=== PATIENT | male | born 1965 | race Caucasian/White ===

== ENCOUNTER 2024-02-06 14:45 | Outpatient (CLI) | payer OTHER, SELFPAY ==
--- NOTE | 2024-02-06 10:45 | DI.RAD_ITS ---
Exam(s) XR KNEE LT 3V AP,LAT,CLAY EXAM: XR KNEE LT 3V AP,LAT,CLAY CLINICAL HISTORY: left knee pain. TECHNIQUE: 2D digital imaging was performed. Three views. COMPARISON: No exams were available for comparison FINDINGS: BONES: No acute fracture is present. No bony destructive lesion is seen. Minimal enthesophyte at t he upper of patella JOINTS: Joint spaces are maintained. The knee is normally aligned. No joint effusion is seen. SOFT TISSUE: Normal. IMPRESSION: No acute abnormality. DATA REPOSITORY: RADIATION DOSE DELIVERED:
== END 2024-02-06 14:46 | disposition home or self-care (01) ==
LOC: DIORS 14:46
PROVIDERS: Visit Provider Physician Assistant
DX: M25.562 Pain in left knee (principal)
CPT/HCPCS: 73562

== ENCOUNTER → 2024-02-21 02:05 | Outpatient (CLI) | payer OTHER, SELFPAY ==
--- NOTE | 2024-02-21 07:30 | DI.MRI_ITS ---
Exam(s) MR LOWER JOINT LT WO EXAM: MR LOWER JOINT LT WO CLINICAL HISTORY: PAIN,INTERNAL DERANGEMENT LT KNEE, M23.92 TECHNIQUE: Multiplanar multisequence MRI of the knee was performed. COMPARISON: CR XR KNEE LT 3V AP,LAT,CLAY from 02/06/2024 FINDINGS: EFFUSION: There is a small knee joint effusion. No Piedra cyst. There is some subcutaneous edema ove r the anterior and both sides of the knee. There is signal abnormality with in the vastus medialis muscle extending above the field of view of t his study consistent with an element of muscular strain-tearing. Signal abnormality at this level ex tends inferiorly over the medial patellar retinaculum. MARROW:There is prominent signal abnormality throughout a large part of the lateral femoral condyle b oth subarticular and extending up into the lower metaphysis. Subchondral signal abnormality noted triana spicious for developing osteochondral defects at this level. A similar focal finding is seen at the main weight-bearing surface of medial femoral condyle. There is no abnormal intraosseous signal eith er side of the tibial plateau nor in the fibular head and neck. PATELLOFEMORAL COMPARTMENT: Quadriceps and patellar tendons are intact. There is no significant thinning of the retropatellar cartilage. No evidence of fissure nor signific ant chondral defect. No osteochondral defect at this level.There is no intraosseous signal to sugges t recent patellar dislocation. There are no patellar retinacular tears. CRUCIATE LIGAMENTS: Some increased signal but no high-grade full-thickness tear.The posterior cruciat e ligament is intact. MEDIAL COMPARTMENT/MEDIAL MENISCUS: Some myxoid degeneration signal in the posterior horn of the medi al meniscus but no true tear of this structure. There is also no tear of the anterior horn of the me dial meniscus.No meniscal extrusion.. There is significant articular cartilagethinning over the outer aspect of the weight-bearing surface of the medial femoral condyle. There is also a focus of signal abnormality which is suspicious for d eveloping osteochondral defect at the articular surface measuring 8 mm wide by 11 mm AP by 4 mm deep. This does not appear unstable at this time. MEDIAL COLLATERAL LIGAMENT: There is significant signal abnormality in the soft tissues over the medi al aspect of the knee, including around the medial collateral ligament but the main component of the medial collateral ligament appears intact. There is no meniscocapsular separation. LATERAL COMPARTMENT/LATERAL MENISCUS: There is no evidence of lateral meniscal tear.However, there is thinning of the articular cartilage over the main weight-bearing surface of the lateral femoral cond yle and, as described above, there is prominent bone contusion signal throughout most of the subartic ular aspect of the lateral condyle and extending up into the distal metaphysis. There is a focus of subarticular signal abnormality also at risk for OCD here. ILIOTIBIAL BAND: Intact LATERAL COLLATERAL LIGAMENT COMPLEX: The fibular collateral ligament is intact. The biceps femoris t endon is intact.Popliteus muscle and tendon are intact. IMPRESSION: 1. There is a larger bone contusion signal involving a large part of the main weight-bearing surface of the lateral femoral condyle. Thinning of the articular cartilage surface at this level. Also a s mall focal area of subarticular signal abnormality in the main weight-bearing surface of the medial f emoral condyle having the appearance of a a focal area of developing osteochondral defect, not unstab le appearing at this time. No evidence of bone contusion in the tibial plateau nor in the fibular he ad and neck. 2. Prominent amount of soft tissue signal abnormality on the medial aspect of the knee involving the vastus medialis muscle and extending down to the medial patellar retinaculum level. Increased signal is seen adjacent to the main aspect of the medial collateral ligament there is no high-grade tear of the MCL. Also no meniscocapsular separation. 3. There are no meniscal tears evident. Some signal abnormality around the ACL but no evidence of hi gh-grade ACL tear. PCL is intact. 4. Lateral collateral ligament complex components are intact. No abnormal intraosseous signal at the fibular head-styloid process attachment site of these components DATA REPOSITORY:
== END ==
PROVIDERS: Visit Provider Student in an Organized Health Care Education/Training Program
DX: M23.92 Unspecified internal derangement of left knee (principal); R22.41 Localized swelling, mass and lump, right lower limb
CPT/HCPCS: 73721

== ENCOUNTER 2024-03-12 16:58 | Emergency (ER) | payer OTHER, SELFPAY ==
[2024-03-12] VITALS (17 sets, daily range): BP systolic 144–187; BP diastolic 82–94; PULSE 71–83; RESP 11–16; TEMP 36.4; O2SAT 98–100
--- NOTE | 2024-03-12 17:00 | RT.EKG_ITS ---
APPROVED REPORT Exam: Resting ECG Reason for Exam: SOB/Palpitations Patient Location: E HR:77 bpm ECG Measurements Heart Rate 77 AXIS ND 202 P 70 QRSd 96 QRS 58 QT 386 T 56 QTc 438 Conclusion Sinus rhythm...normal P axis, V-rate 60- 99 sinus rhythm, normal axis, normal intervals, non ischemic
--- NOTE | 2024-03-12 17:32 | ED.GENADUL_ITS ---
Discharge Plan Disposition Patient Disposition: Home Condition: Improving Discharge Details Chief Complaint: Palpitatns Clinical Impression: Palpitations Primary Care Provider: Unknown,Unknown ED Provider: Yoav Thayer Home Meds and New Rx's Prescriptions: No Action No Known Home Meds Discharge Instructions Instructions: Palpitations Additional Instructions: Please follow-up with cardiology referral. Respiratory therapy team would like to initiate Holter monitor and is available after 7 AM tomorrow morning. Please return to the emergency department for any worsening symptoms HPI General Date/Time Provider Initiated Documentation: 03/12/24 17:14 . HPI Narrative: 59-year-old male presents with 2 days of palpitations and chest pressure nonexertional intermittent in nature self resolving, sensation of presyncope without syncope, history of atrial tachycardia as a child self resolving, no prior history of coronary disease or thromboembolic disease, no recent travel no recent surgery, patient did have left knee steroid injection earlier this month denies leg pain or swelling Related Data Home Medications ?Medication ?Instructions ?Recorded ?Confirmed Unknown [No Known Home Meds] 02/06/24 03/12/24 Allergies Allergy/AdvReac Type Severity Reaction Status Date / Time No Known Allergies Allergy Verified 03/12/24 17:59 General Stated Complaint: Palpitatns KI: 3 Exam Narrative Exam Narrative: Alert oriented interactive Tongue secretions normal voice Normal heart sounds no murmurs rubs or gallops, strong radial pulse warm well- perfused extremities Lungs clear bilaterally, speaking full sentences, no wheezes rales or rhonchi No peripheral edema or pain Course Vital Signs Vital signs: Vital Signs Temperature 36.4 C L 03/12/24 17:03 Pulse 83 03/12/24 17:03 Respiratory Rate 16 03/12/24 17:03 Blood Pressure 144/88 H 03/12/24 17:03 Pulse Oximetry 99 03/12/24 17:03 Temperature 36.4 C L 03/12/24 17:03 Temperature Source Temporal Artery Scan 03/12/24 17:03 Pulse 83 03/12/24 17:03 Respiratory Rate 16 03/12/24 17:03 Respiratory Effort Normal, Non-Labored 03/12/24 17:06 Blood Pressure 144/88 H 03/12/24 17:03 Blood Pressure Position Sitting 03/12/24 17:03 Pulse Oximetry 99 03/12/24 17:03 Oxygen Delivery Method Room Air 03/12/24 17:03 Oxygen Flow Rate 0 03/12/24 17:03 Pain Level 0 03/12/24 17:03 Medical Decision Making 59-year-old male history of atrial tachycardia as a child self resolved, presents with intermittent palpitations and chest pressure associated with presyncope over the last 2 days, resting comfortably no acute distress currently no chest pressure no shortness of breath no current palpitations, hemodynamically stable afebrile nontoxic normotensive, no peripheral edema, no recent travel no recent surgery, patient did have recent left knee steroid injection, no history of thromboembolic disease or coronary disease, EKG normal sinus rhythm nonischemic, consider recurrent PAC versus PVCs versus SVT versus systemic reaction to steroid injection versus must also consider PE versus ACS lower suspicion for pericarditis or myocarditis was also consider electrolyte derangement versus stress/anxiety lower suspicion for aortic pathology or pneumonia or pneumothorax. Will obtain basic labs troponin BNP chest x-ray EKG, TSH coags, close reassessment of symptoms disposition pending results and imaging 19: 39 patient resting comfortably, asymptomatic, labs and imaging unremarkable here. Will arrange cardiology follow-up. Have contacted respiratory team to establish Holter monitor they have instructed patient to return tomorrow morning at 7 AM for evaluation. Quality:SDOH Health Related Social Needs: No Data to Display PFSH All Active Problems (Updated 03/12/24 @ 19:42 by Yoav Thayer MD) Palpitations (Acute) Arthritis of left knee (Acute) Osteochondral defect of condyle of femur (Acute) Social History Smoking/Tobacco Use Status: Never Smoking risk assessment performed?: Yes Alcohol Intake: never Drug use: Never Substance use type: does not use Housing: house
[2024-03-12 17:40] LABS: Abs Immature Grans 0.04 10^3/uL (0.0-0.06); Absolute Basophil Count 0.04 10^3/uL (0.0-0.2); Absolute Eosinophil Count 0.05 10^3/uL (0.0-0.7); Absolute Lymphocyte Count 1.57 10^3/uL (1.2-3.4); Absolute Monocyte Count 0.51 10^3/uL (0.1-0.8); Absolute Neutrophil Count 4.65 10^3/uL (1.2-6.7); Basophils % 0.6 %; Eosinophils % 0.7 %; HCT 44.7 % (40.0-50.0); Immature Grans % 0.6 %; Lymphocytes % 22.9 %; MCH 29.2 pg (27.0-33.0); MCHC 31.3 % (32.0-36.0); MCV 93 fL (80-95); MPV 9.2 fL (8.0-11.0); Monocytes % 7.4 %; Neutrophils % 67.8 %; Platelet Count 241 10^3/uL (130-400); RDW 13.6 % (11.8-14.1); RDW-SD 46.4 fL; WBC 6.86 10^3/uL (4.4-10.8)
[2024-03-12 17:54] LABS: PTT Activated 29.6 sec (23.6-32.8); Prothrombin Time 10.5 sec (9.1-11.1)
[2024-03-12 18:02] LABS: ALT 28 U/L (16-63); AST 13 U/L (15-37); Alkaline Phosphatase 93 U/L (46-116); Anion Gap 7.6 mmol/L (3-11); BUN 18 mg/dL (7-18); Bilirubin, Total 0.97 mg/dL (0.2-1.0); CO2 31.4 mmol/L (21.0-32.0); Calcium 8.9 mg/dL (8.5-10.1); Chloride 102 mmol/L (98-107); Estimated GFR 85.63 (mL/min/1.73m2); Glucose 96 mg/dL (74-106); Magnesium 2.3 mg/dL (1.8-2.4); NT-proBNP 118 pg/mL (<300); Potassium 3.6 mmol/L (3.5-5.1); Sodium 141 mmol/L (136-145); TSH (W/Ref FT4) 2.94 uIU/mL (0.36-3.74); Total Protein 7.8 g/dL (6.4-8.2); Troponin I < 50 ng/L (< or =60)
[2024-03-12 18:10] LABS: D-Dimer 180 ng/mlFEU (<500)
--- NOTE | 2024-03-12 19:10 | DI.RAD_ITS ---
Exam(s) XR CHEST 2V PA LATERAL EXAM: XR CHEST 2V PA LATERAL CLINICAL HISTORY: palpitations, chest pressure. TECHNIQUE: 2D digital imaging was performed. COMPARISON: No exams were available for comparison FINDINGS: 2 views: Heart size is normal. The mediastinum is not widened. Lungs are clear. No infiltrates nor pleural effusions. IMPRESSION: No acute pulmonary findings. DATA REPOSITORY: RADIATION DOSE DELIVERED:
--- NOTE | 2024-03-12 19:34 | DI.VRAD_ITS ---
PROCEDURE INFORMATION: Exam: XR Chest Exam date and time: 03/12/2024 7:00 PM Age: 59 years old Clinical indication: Shortness of breath; Patient HX: Steroid joint injection in knee at ortho clinic 2 weeks ago TECHNIQUE: Imaging protocol: Radiologic exam of the chest. Views: 2 views. COMPARISON: No relevant prior studies available. FINDINGS: Lungs: Normal. Pleural spaces: Unremarkable. No pleural effusion. No pneumothorax. Heart/Mediastinum: Normal. Bones/joints: Multilevel thoracic spine degenerative disc space narrowing and osteophyte formation. IMPRESSION: No acute cardiopulmonary abnormality. Dictated and Authenticated by: Kelvin Richardson MD. Ordering:FOX Cason MD
--- NOTE | 2024-03-12 19:43 | NUR.NOTE ---
Referral to Cardiology for a follow up in one week for palpations. Nursing Note:
== END 2024-03-12 19:40 | disposition home or self-care (01) ==
PROVIDERS: Emergency Provider Emergency Medicine
DX: R00.2 Palpitations (principal); R06.02 Shortness of breath
CPT/HCPCS: 36415; 80053; 93005; 99284; 71046; 83735; 83880; 84443; 84484; 85025; 85379; 85610; 85730; 93010; 99283

== ENCOUNTER 2024-04-05 13:57 | Outpatient (CLI) | payer OTHER, SELFPAY | END 2024-04-05 13:58 | disposition home or self-care (01) | PROVIDERS: Visit Provider Nurse Practitioner Family | DX: R00.2 Palpitations (principal) | CPT/HCPCS: 93246 ==

== ENCOUNTER 2024-04-06 01:46 | Outpatient (CLI) | payer OTHER, SELFPAY ==
[2024-04-06 07:33] LABS: Hemoglobin A1C 5.4 % (<5.7)
[2024-04-06 08:13] LABS: Calculated LDL 135 mg/dL (<100); Cholesterol 207 mg/dL (<200); HDL Cholesterol 47 mg/dL (40-60); Triglyceride 129 mg/dL (<150)
== END 2024-04-06 01:47 | disposition home or self-care (01) ==
LOC: LBO 01:46
PROVIDERS: Absent Provider Nurse Practitioner Family; PCP Nurse Practitioner Family; Referring Provider Nurse Practitioner Family; Visit Provider Nurse Practitioner Family
DX: Z00.00 Encounter for general adult medical examination without abnormal findings (principal)
CPT/HCPCS: 36415; 80061; 83036

== ENCOUNTER 2024-05-01 10:02 | Outpatient (CLI) | payer OTHER, SELFPAY ==
--- NOTE | 2024-05-01 11:26 | W.CARDEVENT ---
Date of service: 05/01/24 Time of Service: 11:26 Cardiac Event Recorder Referring Provider:: Margaret Leyva Indications:: Palpitations Cardiac Event Note: This is a cardiac event monitor. Patient was monitored for 13 days and 4 hours Predominant rhythm was sinus with an average heart rate of 86. Minimum was 60, maximum 135 There were occasional ventricular ectopic beats. These comprised 2% of total. There were rare 3-4 beat runs of nonsustained ventricular tachycardia There were very rare isolated atrial premature beats There was no atrial fibrillation, no high-grade AV block, no pauses greater than 3 seconds No symptoms were reported
== END 2024-05-01 10:03 | disposition home or self-care (01) ==
LOC: CARDOPNVT 10:02
PROVIDERS: PCP Nurse Practitioner Family; Visit Provider Internal Medicine Cardiovascular Disease
DX: R00.2 Palpitations (principal)

== ENCOUNTER 2024-05-03 02:46 | Outpatient (CLI) | payer OTHER, SELFPAY ==
--- NOTE | 2024-05-03 08:30 | DI.US_ITS ---
APPROVED REPORT EXAM: Comprehensive 2D, Doppler, and color-flow Echocardiogram Patient Location: Out-Patient Marketing Development Manager: Marisa Sales RDCS (AE) Indications: Palpitations Other Information Study Quality: Adequate Conclusion Normal left ventricular wall thickness and chamber size. Ejection fraction is 55%. Wall motion is n ormal Normal right ventricular size and function Both atria are normal in size There are no structural valvular abnormalities Mild mitral regurgitation Estimated right ventricular systolic pressure is 30 mmHg Wall motion Left Ventricle The left ventricle is normal size. The left ventricular systolic function is normal. The left ventric ular ejection fraction is within the normal range. There is normal left ventricular wall thickness. T here is normal LV segmental wall motion. There is no ventricular septal defect visualized. LVEF is 55 %. Right Ventricle The right ventricle is normal size. The right ventricular systolic function is normal. Atria The left atrium size is normal. The right atrium size is normal. The interatrial septum is intact wit h no evidence for an atrial septal defect. Aortic Valve The aortic valve is normal in structure. Aortic valve is trileaflet. There is no aortic valvular sten osis. No aortic regurgitation is present. Mitral Valve The mitral valve is normal in structure. No evidence of mitral valve stenosis. Mild mitral regurgitat ion. Tricuspid Valve The tricuspid valve is normal in structure. There is no tricuspid valve stenosis. Trace tricuspid reg urgitation. The RVSP is 30.01 mmHg. Pulmonic Valve The pulmonary valve is normal in structure. There is no pulmonic valvular stenosis. Trace pulmonic re gurgitation. Great Vessels The aortic root is normal in size. The ascending aorta is normal in size. Aortic arch is not well vis ualized. IVC is normal in size and collapses >50% with inspiration. Pericardium There is no pericardial effusion. 2D Dimensions IVSD d PLAX 0.91 cm M: 0.6-1.2 Ao Root d 3.29 cm M: 3.1 - 3.7 LVPW d PLAX 0.94 cm M: 0.6 - 1.2 Ao Asc Diam d 3.32 cm M: 2.6 - 3.4 LVID d PLAX 4.55 cm M: 4.2 - 5.8 LVDs 3.24 cm M: 2.5 - 4.0 LV EF Teichholz 55.5 % FS 28.78 % LV EDV (Teich) 95.0 mL LV ESV (Teich) 42.3 mL M-Mode TAPSE 2.43 cm (M/F) >1.7 Auto EF LV EDV A4C 129.7 mL LV EDV A2C 139.3 mL LV EDV BP 137.6 mL LV ESV A4C 58.7 mL LV ESV A2C 63.0 mL LV ESV BP 60.7 mL LVEF(%) A4C 54.7 % LVEF(%) A2C 54.8 % LVEF(%) BP 55.9 % LV SV A4C 70.9 ml LV SV A2C 76.3 ml LV SV BP 76.9 ml LV CO A4C 5.6 L/min LV CO A2C 5.6 L/min LV CO BP 5.6 L/min HR A4C 78.43 BPM HR A2C 73.17 BPM LV EDV Index (BP) LA Volume LA Length A4C 4.5 cm LA Length A2C 4.6 cm LA Area A4C s 16.11 cm2 LA Area A2C s 17.27 cm2 LA Vol A4C A-L 48.61 mL LA Vol A2C A-L 54.92 mL LA Vol Biplane A-L 52.1 mL LA Vol/BSA A4C A-L LA Vol/BSA A2C A-L LA Vol/BSA BP A-L 21.5 mL/m2 LA Vol A4C MOD 46.0 mL LA Vol A2C MOD 51.1 mL LA Vol BP MOD 48.7 mL RA Volume RA Area A4C 13.3 cm2 RA ESV A4C (A-L) 35.0mL RA Vol/BSA A4C A-L RA Length A4C 4.3 cm RA ESV A4C (MOD) 33.1mL LV Diastology MV E Vmax 0.89 (0.4-1.3 m/s) MV A Vmax 0.65 (0.4-1.3 m/s) E/A Ratio 1.4 Aortic Valve AoV Vmax 1.23 m/s LVOT Vmax 0.82 m/s AoV Peak Grad 6.0 mmHg LVOT Peak Grad 2.7 mmHg AoV Area (Vmax) 2.16 cm2 LVOT VTI 0.168 m AoV VTI 0.264 m LVOT Mean Grad 1.4 mmHg AoV Mean Eduardo. 0.80 m/s LVOT SV 54.40 mL AoV Mean Grad 2.9 mmHg LVOT Diam s 2.00 cm AoV Area (VTI) 2.06 cm2 AV Regurg Peak Gr. 6.03 mmHg Velocity Ratio 0.67 Mitral Valve MV DT 179 (160-240 msec) MV Vmax TIPS 0.97 m/s MV Mean Grad 2.0 (<2mmHg) MV VTI 0.234 m Pulmonary Valve PV Vmax 0.77 (0.5-1.5 m/s) RVOT Vmax 0.61 m/s PV Peak Grad 2.3 mmHg RVOT Peak Gr. 1.5 mmHg PV Mean Eduardo 0.60 m/s RVOT VTI 0.132 m PV Mean Grad 1.5 mmHg RVOT Mean Gr. 0.9 mmHg Tricuspid Valve RA Pressure 3.00 mmHg TR Vmax 2.60 m/s TV S' 0.15 m/s TR Peak Grad 27.0 mmHg RVSP (TR) 30.1 mmHg
== END 2024-05-03 03:06 ==
LOC: DI 02:46
PROVIDERS: PCP Nurse Practitioner Family; Visit Provider Nurse Practitioner Family
DX: R00.2 Palpitations (principal)
CPT/HCPCS: 93306

== ENCOUNTER 2024-11-30 09:04 | Day surgery (SDC) | payer OTHER, SELFPAY ==
--- NOTE | 2024-11-29 18:00 | PDOC.DSDIS_ITS ---
Date of service: 11/30/24 Discharge Plan Disposition Patient Disposition: Home Condition: Good Discharge Details Reason For Visit: Screening colonoscopy Attending Provider: Vikas Hunter Primary Care Provider: Margaret Leyva Home Meds and New Rx's Prescriptions: Continued epinephrine 0.3 mg/0.3 mL auto-injector 0.3 mg IM ONCE Qty: 2 1RF Rx Instructions: as a single dose; may repeat once Discontinued bisacodyl [Dulcolax (bisacodyl)] 5 mg tablet,delayed release (DR/EC) 5 mg PO ONCE Qty: 4 0RF Rx Instructions: Take per colonoscopy instructions provided by ordering providers office polyethylene glycol 3350 17 gram/dose powder 17 g PO ONCE Qty: 238 0RF Rx Instructions: Take per colonoscopy instructions provided by ordering providers office Discharge Instructions Instructions: Colon polyps, Diverticulosis Additional Instructions: Father Edvin, it was great meeting you today, and I hope you are comfortable through the procedure make a quick recovery. Things went very smoothly. Your prep was outstanding and I could see everything fine. I did find to remove 2 polyps today. One of them might not actually be a true polyp, it was quite subtle, but to be safe I did remove this and the other one. Given your father's history, I think this was the safest option. The removal of the polyps was very straightforward and should not cause you any issues at all. These 2 specimens will be sent off to the pathologist for them to review. Once I have that information, my office will be in touch with recommendations for future colonoscopies. With a first-degree family relative confirming a diagnosis of colon cancer, at the very longest, I would recommend 5-year intervals for screening colonoscopies. Incidentally, he also have a little bit of diverticulosis. Diverticula are weak spots in the muscular layer of the colon wall. This causes the inside lining, or the mucosa, to pocket her pouch outwards a bit. These little pockets are called diverticula, the condition of having them is known as diverticulosis, and if they get infected or inflamed, we refer to it as diverticulitis. Diverticulitis is typically experienced by patients as sharp crampy pain usually in the left lower part of their abdomen. Patient usually feel fairly sick when this occurs. Often times it is treated with the antibiotics. Hopefully, years will never bother you. I generally recommend the patient's maintain a diet that is rich in fiber, stay well-hydrated, and avoid symptoms of constipation that might otherwise irritate the diverticula. I have attached some basic in formation here about diverticulosis as well as colon and rectal polyps. If you have any questions at all, please do not hesitate to call, otherwise we will be in touch once we have the results. 1. If tolerated, consume a soft, low fiber diet for 1-2 days. 2[address] Do not drive, drink alcohol, operate machinery, make critical decisions, or do activities that require coordination or balance for 24 hours. 3. Because air was put into your colon during the procedure, expelling air from your rectum (passing gas or farting) is normal. 4. You may not have a bowel movement for 1-3 days because of the colonoscopy prep. This is normal. 5. Go directly to the emergency room if you notice any of the following: Develop chills (warm to touch), or if you have a thermometer and your temperature is above 101 Difficulty breathing or difficultly swallowing Persistent vomiting Severe abdominal pain, other than gas cramps Severe chest pain Black, tarry stools Any bleeding ? exceeding one tablespoon 6. Call your physician if the site where your intravenous was started becomes red, swollen, painful, and warm to touch. 7. Your physician has reviewed your pre-procedure medications. Please continue t o take those medications as previously ordered. You will be given specific information/education regarding any changes to your medications before leaving. Stand Alone Forms: Anesthesia Discharge Inst., Yariel Allison (DSU) Activity:: Activity as Tolerated Diet:: As Tolerated Discharge Orders Discharge Orders: Discharge Order (Routine); Ordered 11/29/24 Ordered By: Vikas Hunter DS: Diagnosis Discharge Diagnosis (1) Encounter for screening colonoscopy: Status: Acute Asessment and Plan: Follow-up on polypectomy results
--- NOTE | 2024-11-29 18:01 | COLE_ITS ---
Date of service: 11/30/24 Time of Service: 11:57 Colonoscopy Report Date of procedure: 11/30/24 Pre-op diagnosis general: Screening colonoscopy Post-op diagnosis procedure note: other (Colon polyps, sigmoid diverticulosis) Procedure: Colonoscopy with polypectomy Surgeon: Vikas Hunter Anesthesia Type: General:No Airway Estimated blood loss (mL): 5 Pathology: other (0.25 cm flat polyp at 50 cm, 0.25 cm pedunculated polyp at 40 cm) Complications: None Disposition: same day Indications: Johny is a 59-year-old male with a family history of colon cancer needs his next screening colonoscopy Prep: Miralax/Dulcolax Procedure Start Time: 11:31 Procedure End Time: 11:46 Retraction Time: 10 Findings: Sigmoid diverticulosis, colon polyps Procedure Description: After the induction of anesthesia, and with the patient in left lateral d ecubitus position, I began by performing an external anorectal exam.? Perineum and skin were normal, as was the anal verge.? There was no evidence of external hemorrhoids.? Next, I performed a digital rectal exam.? I did not appreciate any abnormal findings.? Next, I advanced a colonoscope into the rectal vault.? I performed retroflexion.? This was normal. Using irrigation, I then advanced the colonoscope beyond the rectal folds and into the sigmoid colon before advancing towards the cecum.? The quality of the prep was excellent.? There was sigmoid diverticulosis. The scope was noted to be in the cecum by identification of the ileocecal valve and appendiceal orifice.? I then began withdrawing the colonoscope using repeated irrigation as necessary for full evaluation of the colonic mucosa. ?Around 50 cm from the anal verge was a 0.25 cm flat polyp. This was quite subtle. Narrowband imaging was used to assist with the analysis. Some of the features appeared more consistent with simple polypoid mucosa, but given the family history, to be safe, I did perform cold forcep polypectomy of the area. There was minimal bleeding. Around 40 cm from the anal verge was a more adenomatous appearing polyp. This was also about 0.25 cm, and slightly pedunculated. This was also removed with cold forceps without any problems. Once the scope was withdrawn to the level of the rectum, great care was taken to examine portions of the rectal folds.? Finally, the scope was withdrawn and the patient was brought to the same-day surgery recovery unit as the anesthetic wore off. ?The findings and instructions were shared with the patient prior to discharge. [place] Bowel Prep [place] Bowel Prep Right Colon: 3 Left Colon: 3 Transverse Colon: 3 Total Score: 9
[2024-11-30 09:15] VITALS: BP 152/99; PULSE 96; RESP 16; TEMP 36.3; O2SAT 98
[2024-11-30] MEDS: Lactated Ringers 1,000 ML 80 ML IV (09:42)
--- NOTE | 2024-11-30 11:10 | W.ANESPRE ---
General Info Date of Service Date Performed: 11/30/24 Height: 6 ft Weight: 78.4 kg Body Mass Index (BMI): 23.4 Surgical Procedure: Operation Date: 11/30/24 10:35 Proposed Procedure Side Surgeon p Lamberto Hunter MD Meds Allergies and Home Medications Allergies Allergy/AdvReac Type Severity Reaction Status Date / Time venom-honey bee Allergy Anaphylaxis Verified 11/30/24 09:26 Home Medication ?Medication ?Instructions ?Recorded epinephrine 0.3 mg/0.3 mL 0.3 mg (0.3 mL) IM ONCE #2 ea 03/21/24 injection, auto-injector Current Visit Medications: Current Medications Generic Name Dose Route Start Last Admin Trade Name Freq PRN Reason Stop Dose Admin Ringer's Solution 1,000 mls @ 80 mls/hr 11/30/24 06:00 11/30/24 09:42 IV 11/30/24 23:59 80 mls/hr INFUSION DARLIN Administration IV Miscellaneous Supplies 1 each 11/30/24 06:00 Iv Access IV 11/30/24 23:59 DIRECTED DARLIN Ondansetron HCl 4 mg 11/29/24 18:02 Ondansetron 4 Mg/2 Ml Vial IVP 12/29/24 18:01 Q4H PRN PRN Nausea / Vomiting Sodium Chloride 0 ml 11/30/24 06:00 Normal Saline Flush 10 Ml Syr IV 11/30/24 23:59 PRN PRN Sodium Chloride 0 ml 11/30/24 06:00 Normal Saline 10 Ml Vial IJ 11/30/24 23:59 DIRECTED PRN Sterile Water 0 ml 11/30/24 06:00 Water,Injection,Sterile 10 Ml Vial IJ 11/30/24 23:59 DIRECTED PRN PFSH Active Problems Active Problems: Problem Status Onset Code Family history of colon cancer in father Acute Z80.0 Encounter for screening colonoscopy Acute Z12.11 Family history of colon cancer Acute Z80.0 Allergy to bee sting Acute Z91.030 Preventative health care Acute Z00.00 Arthritis of left knee Acute M17.12 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 Medical History Medical History Family history of colon cancer requiring screening colonoscopy History of atrial tachycardia As a child Surgical History Surgical History 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 Tobacco Smoking/Tobacco Use Status: Never Alcohol Alcohol Intake: never Substance Use Substance use: Never Substance use type: does not use Vital Signs and Lab Results Vital Signs Most Recent Vital Signs in EMR: Most Recent Vital Signs Temp Pulse Resp BP Pulse Ox 36.3 C L 96 H 16 152/99 H 98 11/30/24 09:15 11/30/24 09:15 11/30/24 09:15 11/30/24 09:15 11/30/24 09:15 Lab Results Blood Type / Crossmatch: No Data to Display Complete Blood Count: No Data to Display Complete Metabolic Panel: No Data to Display Liver Function Panel: No Data to Display Coagulation Panel: No Data to Display Cardiac Panel: No Data to Display Arterial Blood Gas: No Data to Display Venous Blood Gas: No Data to Display Pancreas Panel: No Data to Display Thyroid Panel: No Data to Display Infectious Disease: No Data to Display Blood Cultures: No Data to Display Toxicology Panel: No Data to Display Imaging and Studies Imaging and Studies Study information below may be from another EMR and interpreted by another provider. Please see original notes in EMR for more complete details. EKG Summary: 03/12/24: Exam: Resting ECG Reason for Exam: SOB/Palpitations Patient Location: E HR:77 bpm ECG Measurements Heart Rate 77 AXIS CA 202 P 70 QRSd 96 QRS 58 QT 386 T56 QTc 438 Conclusion Sinus rhythm...normal P axis, V-rate 60- 99 sinus rhythm, normal axis, normal intervals, non ischemic I have reviewed and I agree with the emergency room physician's ECG interpretation. Electronically signed by: <Electronically signed by Sherry Sarabia M.D. in [place]> 03/13/24 0903 Cosigned by: Echocardiogram Summary: 05/03/24: Conclusion Normal left ventricular wall thickness and chamber size. Ejection fraction is 55%. Wall motion is normal Normal right ventricular size and function Both atria are normal in size There are no structural valvular abnormalities Mild mitral regurgitation Estimated right ventricular systolic pressure is 30 mmHg Anesthesia Assessment and Plan Anesthesia History Personal History: No History of Anesthesia Complications Family History: No Family History of Anesthesia Complications Exercise Tolerance Exercise Tolerance: Metabolic Equivalents>4 Pertinent Negatives Pertinent Negatives: No Symptoms of GERD, No Major Cardiovascular Symptoms or Complaints and No Major Pulmonary Symptoms or Complaints Cardiac & Pulmonary Exam Cardiac Exam: Normal S1/S2 Heart Sounds Pulmonary Exam: Clear Bilateral Breath Sounds Implantable Cardiac Device Does patient have a Pacemaker or an ICD?: No Airway Exam Known Difficult Airway: No Mallampati Class: 2 Mouth Opening: Normal (> 3cm) Thyromental Distance: Greater than 3 cm Neck Range of Motion: Full ROM Neck Circumference: Normal Teeth Condition: Normal Dentition ASA Classification ASA Score: ASA 2 Emergency Case?: No NPO Status NPO Status: NPO Clears >2 hours, Solids >8 hours Anesthesia Plan Resuscitation Status: Full Code Anesthesia Technique: General Anesthesia Airway Planned: Natural Airway Monitors Used: Standard Monitors
[2024-11-30 11:13] VITALS: BMI 23.4
--- NOTE | 2024-11-30 11:42 | BOWEL_PTH ---
PATIENT: Johny Pardo LOC: [facility] U#:[id number] AGE/SX: 59/M ROOM: RE11/30/[address]: Vikas Hunter MD : [id number] BED: DIS: 11/30/2024 SPEC #: [id number] RECD: 11/30/24 13:08 STATUS: NESTOR RE #: [id number] SOILA: 11/30/24 11:[address]: Vikas Hunter DEPT: Surgical Specimen RECD BY: Janie Chavarria ENTERED: 11/30/24 13:09 SP TYPE: Bowel OTHR DR: Margaret Leyva APRN Tissues: 1 - BIOPSY BOWEL 2 - BIOPSY BOWEL Procedures: GROSS AND MICRO LEVEL 4 Comments: [id number]
[2024-11-30 11:52] VITALS: BP 140/86; PULSE 81; RESP 16; TEMP 36.5; O2SAT 97
--- NOTE | 2024-11-30 12:00 | W.ANESPOSTOP ---
Postoperative Evaluation Date, Time and Location Date Performed: 11/30/24 Time Performed: 12:00 Patient Location: Day Surgery Unit Vital Signs Most Recent Imported Vital Signs: Most Recent Vital Signs Temp Pulse Resp BP Pulse Ox 36.3 C L 96 H 16 152/99 H 98 11/30/24 09:15 11/30/24 09:15 11/30/24 09:15 11/30/24 09:15 11/30/24 09:15 Assessment Mental Status: Awake (Alert & Oriented to Patient Baseline) Airway and Respiratory Function: Patent airway with normal (patient baseline) respiratory exam Cardiovascular Function: Hemodynamically Stable Hydration Status: Adequately Hydrated Nausea & Vomiting: No Nausea or Vomiting Pain: Pt. Denies Any Pain Peripheral Nerve Block: Patient did not receive a nerve block
[2024-11-30 12:30] VITALS: BP 151/87; PULSE 74; RESP 18; TEMP 36.2; O2SAT 96
== END 2024-11-30 12:39 | disposition home or self-care (01) ==
LOC: SUR 09:05
PROVIDERS: PCP Nurse Practitioner Family; Visit Provider Surgery
PROC: 0DJD8ZZ Inspection of Lower Intestinal Tract, Via Natural or Artificial Opening Endoscopic (ICD-10-PCS; CPT 45378; principal; 2024-11-30 10:30)
DX: Z12.11 Encounter for screening for malignant neoplasm of colon (principal); K57.30 Diverticulosis of large intestine without perforation or abscess without bleeding; D12.5 Benign neoplasm of sigmoid colon; Z83.719 Family history of colon polyps, unspecified
CPT/HCPCS: 45380; 88305; J2003; J2704

== ENCOUNTER 2025-03-29 01:03 | Outpatient (CLI) | payer OTHER, SELFPAY ==
[2025-03-29 08:00] LABS: Glucose 100 mg/dL (74-106)
[2025-03-29 08:05] LABS: Calculated LDL 114 mg/dL (<100); Cholesterol 176 mg/dL (<200); HDL Cholesterol 41 mg/dL (>or=40); Triglyceride 105 mg/dL (<150)
== END 2025-03-29 01:04 | disposition home or self-care (01) ==
PROVIDERS: PCP Nurse Practitioner Family; Visit Provider Nurse Practitioner Family
DX: Z00.00 Encounter for general adult medical examination without abnormal findings (principal)
CPT/HCPCS: 36415; 80061; 82947